=== PATIENT | female | born 1955 | race Caucasian/White ===

== ENCOUNTER 2016-02-19 10:52 | Outpatient (RCR) | payer BC ==
[~2016-02-19 10:52] MED LIST: ATEN25TA PO; ATR20T PO; MELO-195 PO; OMEP20CA12 PO
== END 2016-03-14 10:01 | disposition home or self-care (01) ==
PROVIDERS: ATTEND Orthopaedic Surgery
DX: Z47.1 Aftercare following joint replacement surgery (principal); Z96.651 Presence of right artificial knee joint

== ENCOUNTER → 2016-06-14 | Outpatient (CLI) | payer BC ==
--- NOTE | 2016-06-15 18:08 | Diagnostic Imaging Report ---
Bilateral screening mammogram. The current study was also evaluated with a Computer Aided Detection (CAD) system. INDICATION: Screening. No current complaints stated on the questionnaire. COMPARISON: 06/01/15. FINDINGS: The breasts are composed of heterogeneously dense parenchyma which may decrease mammographic sensitivity. There are benign-appearing calcifications seen. Allowing for technique and positional differences, no suspicious change is seen. IMPRESSION: No significant change. ACR BI-RADS Category 2: Benign findings. Result letter will be mailed to the patient. Note: At least 10% of breast cancer is not imaged by mammography. Dictated by: Dictated on workstation # [id number]
== END ==
LOC: RAD 13:02
PROVIDERS: ATTEND Obstetrics & Gynecology
DX: Z12.31 Encounter for screening mammogram for malignant neoplasm of breast (principal)
CPT/HCPCS: 77067

== ENCOUNTER 2017-02-17 08:03 | Outpatient (RCR) | payer BC | END 2017-02-17 08:48 | disposition home or self-care (01) | PROVIDERS: ATTEND Nurse Practitioner Family | DX: M54.16 Radiculopathy, lumbar region (principal) ==

== ENCOUNTER → 2017-07-05 | Outpatient (CLI) | payer BC ==
--- NOTE | 2017-07-05 13:07 | Diagnostic Imaging Report ---
INDICATION: Digital mammogram bilateral screening with 3-D tomosynthesis. This study was compared to the prior exam of 06/14/16, 06/01/15 and 05/28/14. At this time, there are no current complaints. The current study was also evaluated with a Computer Aided Detection (CAD) system. FINDINGS: The fibroglandular tissue in both breasts is heterogeneously dense. This does limit the sensitivity of this exam. When compared to the prior study, there does not appear to have been any significant change. There is no primary or secondary sign of malignancy noted. The 3D tomographic views also fail to show any sign of malignancy. IMPRESSION: There is no evidence of malignancy. ACR BI-RADS Category 1: Negative. Result letter will be mailed to the patient. Note: At least 10% of breast cancer is not imaged by mammography. Dictated by: Dictated on workstation # [id number]
== END ==
LOC: RAD 07:29
PROVIDERS: ATTEND Obstetrics & Gynecology
DX: Z12.31 Encounter for screening mammogram for malignant neoplasm of breast (principal)
CPT/HCPCS: 77067

== ENCOUNTER → 2018-06-27 | Outpatient (CLI) | payer MEDICARE ==
--- NOTE | 2018-06-27 11:56 | Diagnostic Imaging Report ---
INDICATION: Screening. TECHNIQUE: The current study was also evaluated with a Computer Aided Detection (CAD) system. 3D tomographic imaging was also performed. COMPARISON: 07/05/2017, 06/14/2016, and 06/01/2015. FINDINGS: There are scattered fibroglandular densities bilaterally. There are a few benign type calcifications. There is no dominant mass, spiculated lesion, or suspicious calcification identified. The skin, nipples, and axillae are unremarkable. IMPRESSION: Benign findings. ACR BI-RADS Category 2: Benign findings. Result letter will be mailed to the patient. Note: At least 10% of breast cancer is not imaged by mammography. Dictated by: Dictated on workstation # [id number]
== END ==
LOC: RAD 07:22
PROVIDERS: ATTEND Obstetrics & Gynecology
DX: Z12.31 Encounter for screening mammogram for malignant neoplasm of breast (principal)
CPT/HCPCS: 77067

== ENCOUNTER → 2018-12-21 | Outpatient (CLI) | payer MEDICARE ==
--- NOTE | 2018-12-21 16:08 | Diagnostic Imaging Report ---
PROCEDURE: US carotid duplex, bilateral. TECHNIQUE: Multiple real-time grayscale images were obtained over the carotid arteries in various projections, bilaterally. Additional spectral analysis and color Doppler duplex images were also obtained. INDICATION: Chest pain, shortness of breath. COMPARISON: There are no prior studies available for comparison. FINDINGS: There is mild hard and soft plaque formation in both carotid bifurcations. The flow velocities failed to show any sign of a hemodynamically significant stenosis of the common or internal carotid arteries. Both vertebral arteries were noted and there was antegrade flow bilaterally. During the course the exam a small subcentimeter hypoechoic area was seen in the right lobe of the thyroid. I suspect that this is a cyst and most likely benign. Even so, I would recommend that a dedicated thyroid ultrasound exam be performed to better characterize this finding. IMPRESSION: 1. There is mild atherosclerotic disease involving both carotid systems. There is no evidence for a hemodynamically significant stenosis of either carotid system. 2. The small hypoechoic lesion in the right lower thyroid is most likely a benign process. Recommendations as above. Parameters based on the consensus panel Pruitt-Scale and Doppler ultrasound criteria published December 2002, Radiology, Volume 229. DOPPLER (peak systolic velocity M/S Right Left CCA .79 .86 ICA Proximal .73 .73 ICA Mid .76 1.09 ICA Distal .89 1.45 RATIO 1.1 1.7 ECA .97 .73 VERT .39 .74 Dictated by: Dictated on workstation # [id number]
== END ==
LOC: RAD 14:54
PROVIDERS: ATTEND Internal Medicine Cardiovascular Disease
DX: I65.23 Occlusion and stenosis of bilateral carotid arteries (principal); E07.89 Other specified disorders of thyroid; R42 Dizziness and giddiness; R55 Syncope and collapse; R06.02 Shortness of breath
CPT/HCPCS: 93880

== ENCOUNTER → 2018-12-25 | Outpatient (CLI) | payer MEDICARE ==
[~2018-12-25] VITALS: Ht 162 cm; Wt 82.0 kg
[~2018-12-25] MED LIST changes: +CATHETER FLUSH 10 ML SYR IV PRN; +REGADENOSON 0.4 MG/5 ML SYR (LEXISCAN) IV ONE
--- NOTE | 2018-12-25 17:14 | STRESS TEST ---
DATE OF SERVICE: 12/25/2018 RESTING AND POST REGADENOSON TECHNETIUM-99M TETROFOSMIN SPECT CT IMAGING ORDERING PHYSICIAN: Dr. Dukes. PRIMARY PHYSICIAN: Dr. Sesay. CLINICAL DIAGNOSIS: Chest discomfort, shortness of breath, near syncope. Baseline images were carried out after injection of 10.27 mCi of technetium-99m Tetrofosmin. This was followed by 0.4 mg regadenoson and 29.5 mCi of technetium-99m Tetrofosmin for stress imaging. The electrocardiogram shows sinus rhythm at baseline. The electrocardiogram did not change significantly with the regadenoson infusion. A few isolated premature ventricular contractions were seen. The patient tolerated the procedure well. Review of images at rest and following stress does not indicate any distinct perfusion defects consistent with significant myocardial ischemia or infarction. Gated images show normal global left ventricular systolic function with normal regional wall motion. Left ventricular ejection fraction is calculated to be 67%. Left ventricular end diastolic volume is 72 mL. TID is absent (1.06). CONCLUSIONS: 1. No evidence of any significant myocardial ischemia or infarction on this study. 2. Normal regional wall motion. 3. Normal global left ventricular systolic function with a calculated ejection fraction of 67%. Job ID: [id number] DocumentID: [id number] Dictated Date: 12/25/2018 13:59:05 Expediter Date: 12/25/2018 17:13:31 Dictated By: DEBBIE DUKES MD, MA, FACP, FACC,
== END ==
LOC: CARD 06:49
PROVIDERS: ATTEND Internal Medicine Cardiovascular Disease
DX: I47.1 Supraventricular tachycardia (principal); E78.5 Hyperlipidemia, unspecified
CPT/HCPCS: 78452; 93017

== ENCOUNTER → 2018-12-27 | Outpatient (CLI) | payer MEDICARE ==
[~2018-12-27] MED LIST changes: -CATHETER FLUSH 10 ML SYR IV PRN; -REGADENOSON 0.4 MG/5 ML SYR (LEXISCAN) IV ONE
== END ==
LOC: CARD 08:17
PROVIDERS: ATTEND Internal Medicine Cardiovascular Disease
DX: I34.0 Nonrheumatic mitral (valve) insufficiency (principal); I51.7 Cardiomegaly; E78.5 Hyperlipidemia, unspecified; I47.1 Supraventricular tachycardia; R55 Syncope and collapse; R42 Dizziness and giddiness
CPT/HCPCS: 93306

== ENCOUNTER → 2019-01-02 | Outpatient (CLI) | payer MEDICARE ==
--- NOTE | 2019-01-02 10:47 | Diagnostic Imaging Report ---
PROCEDURE: US Thyroid. TECHNIQUE: Multiple real-time grayscale images were obtained of the thyroid in various projections. INDICATION: Thyroid nodule. COMPARISON: None available FINDINGS: The right lobe of thyroid gland measures 4.0 x 1.3 x 1.9 cm. A spongiform round 0.9 x 0.7 x 0.7 cm hypoechoic nodule is noted within the mid right thyroid lobe. An additional 0.7 cm colloid cyst is noted within the right thyroid lobe. The left lobe of thyroid gland measures 3.9 x 1.0 x 1.2 cm. It maintains a homogeneous echotexture. 0.5 x 0.4 cm round cystic nodule is noted within the left thyroid lobe posteriorly without internal vascularity. Isthmus is unremarkable. IMPRESSION: Bilateral subcentimeter thyroid nodules, including a TIRADS 2 nodule within the right thyroid lobe. Dictated by: Dictated on workstation # [id number]
== END ==
LOC: RAD 07:46
PROVIDERS: ATTEND Internal Medicine
DX: E04.2 Nontoxic multinodular goiter (principal)
CPT/HCPCS: 76536

== ENCOUNTER → 2019-01-22 | Outpatient (CLI) | payer MEDICARE ==
--- NOTE | 2019-01-22 10:14 | Diagnostic Imaging Report ---
INDICATION: Screening for osteoporosis. COMPARISON: 07/17/2009 FINDINGS: The bone mineral density of the hips and spine was measured. This exam was compared to the report from the prior exam of 07/17/2009. The T score for the spine is -1.2. On the prior exam, the T score was reported as 1.0. The T score now falls within the range of osteopenia. The total T score for the left hip is -0.7 and for the right hip -0.9. On the prior exam, the respective T scores were -0.4 and 0.0. These values remain within normal limits. The T score for the left femoral neck is -1.4 and for the right femoral neck -1.3. These T scores indicate osteopenia. The T-scores for the femoral necks were not obtained on the prior exam. AP Spine L1-L4: [BMD (g/cm2): 1.061] [T-Score: -1.2] [Z-Score: -.1] [BMD Previous: 1.383] [BMD % Change: -23.3] LT Hip Neck: [BMD (g/cm2): 0.845] [T-Score: -1.4] [Z-Score: -0.2] LT Hip Total: [BMD (g/cm2):0.916] [T-Score:-0.7] [Z-Score: 0.1] [BMD Previous: 0.958] [BMD % Change: -4.4] RT Hip Neck: [BMD (g/cm2):0.857] [T-Score:-1.3] [Z-Score:-0.2] RT Hip Total: [BMD (g/cm2):0.889] [T-score:-0.9] [Z-Score:-0.1] [BMD Previous:1.014] [BMD % Change:-12.3] *Indicates significant change from prior examination based on 95% confidence level. World Health Organization criteria for BMD interpretation classify patients as Normal (T-score at or above -1.0), Osteopenic (T-score between -1.0 and -2.5) or Osteoporotic (T-score at or below -2.5). LIMITATIONS AND MODIFICATION: None. FRACTURE RISK (FRAX SCORE): The ten year probability of (%): Major Osteoporotic Fracture: [8.5] Hip Fracture: [0.9] IMPRESSION: 1. 1. The bone mineral density of the hips and spine has decreased since the prior exam. The T score for the spine now indicates mild osteopenia. The T score values for the hips remain within normal limits. 2. The T-scores for the femoral necks were not obtained on the prior study. The bone mineral density of the femoral necks on this exam does fall within the range of osteopenia. 3. See below National Osteoporosis Foundation guidelines on when to potentially initiate pharmacologic therapy. Based on the National Osteoporosis Foundation Guidelines, pharmacologic treatment should be initiated in any of the following, unless clinical conditions suggest otherwise: * Any patient with prior fragility fracture of the hip or vertebrae. A spine fracture indicates 5X risk for subsequent spine fracture and 2X risk for subsequent hip fracture. * Osteoporosis (T-score <-2.5). * Postmenopausal women and men age 50 and older with low bone mass/osteopenia (T-score between -1.0 and -2.5) by DXA and 10-year major osteoporotic fracture greater than 20% or a 10-year probability of hip fracture greater than 3%. These fracture risks are supplied above in the FRAX score, if applicable. * Clinician judgement and/or patient preferences may indicate treatment for people with 10-year fracture probabilities above or below these levels. Dictated by: Dictated on workstation # [id number]
== END ==
LOC: RAD 08:44
PROVIDERS: ATTEND Internal Medicine
DX: Z13.820 Encounter for screening for osteoporosis (principal); Z78.0 Asymptomatic menopausal state
CPT/HCPCS: 77080

== ENCOUNTER → 2019-07-16 | Outpatient (CLI) | payer MEDICARE ==
--- NOTE | 2019-07-16 12:40 | Diagnostic Imaging Report ---
INDICATION: Routine screening. COMPARISON: 06/27/2018 and 07/05/2017. TECHNIQUE: 2D and 3D bilateral screening mammography was performed with CAD. FINDINGS: Scattered fibroglandular densities are identified bilaterally. Scattered benign-appearing calcifications are noted. No mass or malignant appearing microcalcifications are identified. The axillae are unremarkable. IMPRESSION: No mammographic features suspicious for malignancy are identified. ACR BI-RADS Category 2: Benign findings. Result letter will be mailed to the patient. Note: At least 10% of breast cancer is not imaged by mammography. Dictated by: Dictated on workstation # [id number]
== END ==
LOC: RAD 08:13
PROVIDERS: ATTEND Obstetrics & Gynecology
DX: Z12.31 Encounter for screening mammogram for malignant neoplasm of breast (principal)
CPT/HCPCS: 77063; 77067

== ENCOUNTER → 2019-07-23 | Outpatient (CLI) | payer MEDICARE ==
--- NOTE | 2019-07-23 10:21 | Diagnostic Imaging Report ---
INDICATION: Thyroid nodules, follow-up TECHNIQUE: Grayscale sonographic images of the thyroid gland. CORRELATION STUDY: 01/02/2019 FINDINGS: RIGHT LOBE: 4 x 1.6 x 1.4 cm. There are multiple peripherally hypoechoic, largely cystic nodules within the right lobe. One is slightly complex mixed solid cystic at the mid aspect measuring 9 x 7 x 7 mm. Multiple additional ones are also present more cystic in nature measuring up to 7 mm in size. LEFT LOBE: 3.5 x 1.2 x 0.7 cm. Very small, cystic nodule is noted, largest up to 5 mm in size. Isthmus appears unremarkable. IMPRESSION: Multiple bilateral thyroid nodules right greater than left. Overall number of nodules perhaps increased from prior study. However, no definitive dominant concerning nodule is suggested at this time. Continued follow-up ultrasound imaging in approximately 6-12 months is recommended for continued surveillance assessment. (Normal gland size: 4-5 x 2 x 2 cm) Dictated by: Dictated on workstation # [id number]
== END ==
LOC: RAD 08:36
PROVIDERS: ATTEND Internal Medicine
DX: E04.2 Nontoxic multinodular goiter (principal)
CPT/HCPCS: 76536

== ENCOUNTER → 2020-07-17 | Outpatient (CLI) | payer MEDICARE ==
--- NOTE | 2020-07-17 14:32 | Diagnostic Imaging Report ---
INDICATION: Routine screening. Comparison is made prior mammogram 07/16/2019 and 06/27/2018. 2-D and 3-D bilateral screening mammography was performed with CAD. Scattered fibroglandular densities are identified bilaterally. The parenchymal pattern is stable. No mass or malignant appearing microcalcifications are seen. There are benign calcifications. Axillae are unremarkable. IMPRESSION: BI-RADS Category 2 No mammographic features suspicious for malignancy are identified. ACR BI-RADS Category 2: Benign findings. Result letter will be mailed to the patient. Note: At least 10% of breast cancer is not imaged by mammography. Dictated by: Dictated on workstation # [id number]
== END ==
LOC: RAD 08:34
PROVIDERS: ATTEND Internal Medicine
DX: Z12.31 Encounter for screening mammogram for malignant neoplasm of breast (principal)
CPT/HCPCS: 77063; 77067

== ENCOUNTER → 2020-12-25 | Outpatient (CLI) | payer MEDICARE ==
--- NOTE | 2020-12-25 11:12 | Diagnostic Imaging Report ---
PROCEDURE: US Thyroid. TECHNIQUE: Multiple real-time grayscale images were obtained of the thyroid in various projections. INDICATION: Thyroid nodules. FINDINGS: The previous thyroid ultrasound exam performed on 07/23/2019 noted multiple rounded hypoechoic areas within each lobe of the thyroid. These hypoechoic nodules had increased in number since the prior exam of 01/02/2019. However, all of the hypoechoic lesions had a generally benign appearance. In the inferior pole of the right lobe of the thyroid, there is a 1.0 x 0.9 x 0.9 cm fairly well-circumscribed predominantly cystic lesion with a few internal echoes. This finding appears to have been present on the prior exam at which time it measured 0.9 x 0.7 x 0.7 cm. The cystic component of this nodule has increased since the prior study but this finding still has a generally benign appearance. Even so, it may prove worthwhile to have a short-term (six-month) follow-up thyroid ultrasound exam for further study. The other suspected thyroid cysts/nodules seen previously do not appear to have changed significantly. No new abnormality has developed either. The thyroid gland is not enlarged with the right lobe measuring 3.8 x 1.2 x 1.5 cm and the left lobe estimated to be 3.3 x 1.0 x 1.1 cm (normal gland size 4-5 x 2 x 2 cm or less). IMPRESSION: 1. The hypoechoic nodule containing internal echoes in the inferior pole of the right lobe of the thyroid seen previously does measure somewhat greater on this exam. This finding still has a generally benign appearance but a short-term (six-month) follow-up thyroid ultrasound exam would be recommended for further study. 2. The overall appearance of the thyroid gland has not changed significantly, otherwise. Dictated by: Dictated on workstation # [id number]
== END ==
LOC: RAD 08:00
PROVIDERS: ATTEND Internal Medicine
DX: E04.2 Nontoxic multinodular goiter (principal)
CPT/HCPCS: 76536

== ENCOUNTER → 2021-04-07 | Outpatient (CLI) | payer MEDICARE | LOC: LABNPT 07:00 | PROVIDERS: ATTEND Orthopaedic Surgery | DX: Z01.812 Encounter for preprocedural laboratory examination (principal); Z20.822 Contact with and (suspected) exposure to COVID-19 | CPT/HCPCS: 87635 ==

== ENCOUNTER 2021-05-26 08:05 | Outpatient (RCR) | payer MEDICARE | END 2021-05-27 | disposition home or self-care (01) | PROVIDERS: ATTEND Nurse Practitioner Family | DX: M25.511 Pain in right shoulder (principal); I10 Essential (primary) hypertension; Z98.890 Other specified postprocedural states; Z96.611 Presence of right artificial shoulder joint ==

== ENCOUNTER 2021-06-25 08:00 | Outpatient (RCR) | payer MEDICARE | END 2021-06-26 | disposition home or self-care (01) | PROVIDERS: ATTEND Nurse Practitioner Family | DX: M25.511 Pain in right shoulder (principal); I10 Essential (primary) hypertension; Z98.890 Other specified postprocedural states; Z96.611 Presence of right artificial shoulder joint ==

== ENCOUNTER → 2021-07-13 | Outpatient (CLI) | payer MEDICARE ==
--- NOTE | 2021-07-13 10:24 | Diagnostic Imaging Report ---
INDICATION: Postmenopausal screening COMPARISON: 01/22/2019 FINDINGS: AP Spine L1-L4: [BMD (g/cm2): 0.977] [T-Score: -1.9] [Z-Score: -038] [BMD Previous: 1.061] [BMD % Change: -7.9] LT Hip Neck: [BMD (g/cm2): 0.862] [T-Score: -1.3] [Z-Score: -0.1] LT Hip Total: [BMD (g/cm2):0.924] [T-Score:-0.7] [Z-Score: 0.3] [BMD Previous: 0.916] [BMD % Change: 0.9] RT Hip Neck: [BMD (g/cm2):0.816] [T-Score:-1.6] [Z-Score:-0.4] RT Hip Total: [BMD (g/cm2):0.909] [T-score:-0.8] [Z-Score:0.2] [BMD Previous:0.889] [BMD % Change:2.2] *Indicates significant change from prior examination based on 95% confidence level. World Health Organization criteria for BMD interpretation classify patients as Normal (T-score at or above -1.0), Osteopenic (T-score between -1.0 and -2.5) or Osteoporotic (T-score at or below -2.5). LIMITATIONS AND MODIFICATION: None. FRACTURE RISK (FRAX SCORE): The ten year probability of (%): Major Osteoporotic Fracture: [15.3] Hip Fracture: [2.0] IMPRESSION: 1. Osteopenia (Low bone mass). 2. Bone mineral density has decreased by a statistically significant amount, as detailed above. 3. See below National Osteoporosis Foundation guidelines on when to potentially initiate pharmacologic therapy. Based on the National Osteoporosis Foundation Guidelines, pharmacologic treatment should be initiated in any of the following, unless clinical conditions suggest otherwise: * Any patient with prior fragility fracture of the hip or vertebrae. A spine fracture indicates 5X risk for subsequent spine fracture and 2X risk for subsequent hip fracture. * Osteoporosis (T-score <-2.5). * Postmenopausal women and men age 50 and older with low bone mass/osteopenia (T-score between -1.0 and -2.5) by DXA and 10-year major osteoporotic fracture greater than 20% or a 10-year probability of hip fracture greater than 3%. These fracture risks are supplied above in the FRAX score, if applicable. * Clinician judgement and/or patient preferences may indicate treatment for people with 10-year fracture probabilities above or below these levels. Dictated by: Dictated on workstation # [id number]
--- NOTE | 2021-07-13 10:29 | Diagnostic Imaging Report ---
PROCEDURE: US Thyroid. TECHNIQUE: Multiple real-time grayscale images were obtained of the thyroid in various projections. INDICATION: Follow-up of thyroid nodule. Comparison with the previous examination of 12/25/2020. FINDINGS: Right lobe measures 3.9 x 1.3 x 2.2 cm. Left lobe measures 3.9 x 0.5 x 1.3 cm. The anechoic cyst noted in the right lobe with peripheral calcifications are again demonstrated. These have not changed in appearance. No solid lesions are identified. IMPRESSION: Anechoic cyst with peripheral calcification right lobe are stable. 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 Two-year follow-up recommended. TI-RADS 3 Dictated by: Dictated on workstation # [id number]
== END ==
LOC: RAD 08:30
PROVIDERS: ATTEND Internal Medicine
DX: M85.80 Other specified disorders of bone density and structure, unspecified site (principal); E04.1 Nontoxic single thyroid nodule; Z78.0 Asymptomatic menopausal state
CPT/HCPCS: 76536; 77080

== ENCOUNTER → 2021-07-20 | Outpatient (CLI) | payer MEDICARE ==
--- NOTE | 2021-07-20 10:52 | Diagnostic Imaging Report ---
INDICATION: Routine screening. COMPARISON: 07/17/2020 and 07/16/2019. TECHNIQUE: 2D and 3D bilateral screening mammography was performed with CAD. FINDINGS: Scattered fibroglandular densities are identified bilaterally. The parenchymal pattern is stable. No mass or malignant-appearing microcalcifications are seen. Occasional benign calcifications are noted. The axillae are unremarkable. IMPRESSION: No mammographic features suspicious for malignancy are identified. ACR BI-RADS Category 2: Benign findings. Result letter will be mailed to the patient. Note: At least 10% of breast cancer is not imaged by mammography. Dictated by: Dictated on workstation # [id number]
== END ==
LOC: RAD 08:45
PROVIDERS: ATTEND Internal Medicine
DX: Z12.31 Encounter for screening mammogram for malignant neoplasm of breast (principal)
CPT/HCPCS: 77063; 77067

== ENCOUNTER 2021-07-23 09:19 | Outpatient (RCR) | payer MEDICARE | END 2021-07-27 | disposition home or self-care (01) | PROVIDERS: ATTEND Nurse Practitioner Family | DX: M25.511 Pain in right shoulder (principal); I10 Essential (primary) hypertension; Z98.890 Other specified postprocedural states; Z96.611 Presence of right artificial shoulder joint ==

== ENCOUNTER 2021-08-12 08:26 | Outpatient (RCR) | payer MEDICARE | END 2021-08-12 12:10 | disposition home or self-care (01) | PROVIDERS: ATTEND Nurse Practitioner Family | DX: M25.511 Pain in right shoulder (principal); I10 Essential (primary) hypertension; Z98.890 Other specified postprocedural states; Z96.611 Presence of right artificial shoulder joint ==

== ENCOUNTER → 2021-08-19 | Outpatient (CLI) | payer MEDICARE ==
[~2021-08-19] MED LIST changes: +ZOLEDRONATE (RECLAST) 5 MG/100 ML IV ONE
[2021-08-19 09:45] VITALS: BP 140/72
== END ==
LOC: SDC 09:26
PROVIDERS: ATTEND Internal Medicine
DX: M81.0 Age-related osteoporosis without current pathological fracture (principal); M85.80 Other specified disorders of bone density and structure, unspecified site
CPT/HCPCS: 96365

== ENCOUNTER 2022-03-10 01:28 | Emergency (ER) | payer MEDICARE ==
[~2022-03-10 01:28] MED LIST changes: -ONDA8TAB13 PO; -OXYC1TAB11 PO
--- NOTE | 2022-03-10 01:51 | ED Abdominal Pain ---
General Chief Complaint: Abdominal/GI Problems Stated Complaint: RT SIDE PAIN,DRY HEAVES Source of Information: Patient History of Present Illness Date Seen by Provider: Mar 10, 2022 Time Seen by Provider: 01:48 Initial Comments PT ARRIVES VIA POV FROM HOME C/O RIGHT SIDED ABDOMINAL PAIN THAT STARTED TONIGHT AROUND 1900 C/O NAUSEA AND VOMITING, NOW DRY HEAVES--TOO MANY TO COUNT; NO HEMATEMESIS OR COFFEE GROUND EMESIS C/O DIARRHEA BEGAN A COUPLE OF DAYS AGO--3-4 STOOLS / DAY. NO BLACK/BLOODY/TARRY STOOLS NO FEVER NO URINARY SYMPTOMS NO BACK PAIN ATE DINNER AROUND [id number] AT [employer], [place], [employer]. NO ONE ELSE IS ILL. STATES SHE FELT FINE ALL DAY PT HAS HAD PRIOR APPENDECTOMY AND CHOLECYSTECTOMY SHE HAS HISTORY OF CROHN'S DISEASE, NOT ACTIVE WITH LAST COLONOSCOPY A COUPLE OF YEARS AGO. SHE DOES NOT TAKE ANY MEDICATIONS FOR CROHN'S. SHE STATES HER CROHN'S HAS BEEN IN REMISSION FOR MANY YEARS. PCP:DR. MATA GI: DR. GUILLAUME IN [place] Allergies and Home Medications Allergies Coded Allergies: No Known Drug Allergies (Unverified , 03/29/11) Patient Home Medication List Home Medication List Reviewed: Yes Atenolol (Tenormin 25 Mg) 25 Mg Tablet, 1 EACH PO DAILY, (Reported) Entered as Reported by: DEEPIKA PIERCE on 03/29/11 1334 Atorvastatin (Lipitor 20MG) 20 Mg Tablet, 1 EACH PO DAILY, (Reported) Entered as Reported by: DEEPIKA PIERCE on 03/29/11 1334 Meloxicam (Meloxicam) 15 Mg Tablet, 1 EACH PO DAILY, (Reported) Entered as Reported by: DEEPIKA PIERCE on 03/29/11 1334 Omeprazole (Omeprazole) 20 Mg Capsule., 1 CAP PO DAILY, (Reported) Entered as Reported by: DEEPIKA PIERCE on 03/29/11 1334 Ondansetron (Ondansetron Odt) 8 Mg Tab.rapdis, 8 MG PO Q4H PRN for NAUSEA/VOMITING Prescribed by: LUISA ARANGO on 03/10/22 0407 Oxycodone HCl/Acetaminophen (Oxycodone-Acetaminophen 5-325) 5 Mg-325 Mg Tablet, 1 EACH PO Q4H PRN for PAIN-MODERATE Prescribed by: LUISA ARANGO on 03/10/22 0408 Review of Systems Review of Systems Constitutional: no symptoms reported; No chills, No diaphoresis, No fever Respiratory: No Symptoms Reported Cardiovascular: No Symptoms Reported Gastrointestinal: See HPI, Abdominal Pain, Diarrhea, Nausea; Denies Poor Appetite, Denies Rectal Bleeding; Vomiting Genitourinary: No Symptoms Reported Musculoskeletal: no symptoms reported Skin: no symptoms reported; No rash Psychiatric/Neurological: No Symptoms Reported Endocrine: No Symptoms Reported Hematologic/Lymphatic: No Symptoms Reported Past Dfkaidj-Hsywfd-Ijidiy Hx Patient Social History Tobacco Use?: No Use of E-Cig and/or Vaping dev: No Substance use?: No Alcohol Use?: Yes Alcohol Frequency: Once in a while Past Medical History Surgeries: Yes Abdominal, Appendectomy, Gallbladder Respiratory: No Cardiac: Yes 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, Hypertension 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 Genitourinary: No Gastrointestinal: Yes Gastroesophageal Reflux, Crohns Disease Musculoskeletal: Yes Arthritis Endocrine: Yes (THYROID NODULES) HEENT: No Cancer: No Psychosocial: No Integumentary: No Blood Disorders: No Family Medical History SOCIAL HISTORY: -NO SMOKING -OCCASIONAL ETOH -DENIES DRUG USE PAST SURGICAL HISTORY: -OPEN APPENDECTOMY -OPEN CHOLECYSTECTOMY -COLONOSCOPIES -EGD Physical Exam Vital Signs Vital Signs - First Documented 03/10/22 01:45 Temp 36.0 Pulse 74 Resp 16 B/P (MAP) 187/76 (113) Pulse Ox 96 O2 Delivery Room Air Capillary Refill : Height/Weight/BMI Height: '" Weight: lbs. oz. kg; 31.24 BMI Method: General Appearance: WD/WN, other (PT IS DRY HEAVING ON ARRIVAL, AND LOOKS UNCOMFORTABLE, HOLDING RIGHT SIDE) Respiratory: normal breath sounds, no respiratory distress, no accessory muscle use Cardiovascular: regular rate, rhythm, no murmur Gastrointestinal: normal bowel sounds, soft; No distended, No guarding, No r ebound; tenderness (DIFFUSE RIGHT SIDED ABDOMINAL TENDERNESS, WITH MILD RIGHT FLANK TENDERNESS. 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, no motor/sensory deficits, alert, oriented x 3 Skin: normal color, warm/dry; No rash Progress/Results/Core Measures Results/Orders Lab Results Laboratory Tests Test 03/10/22 01:50 03/10/22 02:55 Range/Units White Blood Count 7.5 4.3-11.0 10^3/uL Red Blood Count 4.29 3.80-5.11 10^6/uL Hemoglobin 11.0 L 11.5-16.0 g/dL Hematocrit 35 35-52 % Mean Corpuscular Volume 82 80-99 fL Mean Corpuscular Hemoglobin 26 25-34 pg Mean Corpuscular Hemoglobin Concent 31 L 32-36 g/dL Red Cell Distribution Width 15.8 H 10.0-14.5 % Platelet Count 288 130-400 10^3/uL Mean Platelet Volume 9.2 9.0-12.2 fL Immature Granulocyte % (Auto) 0 % Neutrophils (%) (Auto) 74 42-75 % Lymphocytes (%) (Auto) 19 12-44 % Monocytes (%) (Auto) 5 0-12 % Eosinophils (%) (Auto) 1 0-10 % Basophils (%) (Auto) 0 0-10 % Neutrophils # (Auto) 5.6 1.8-7.8 10^3/uL Lymphocytes # (Auto) 1.5 1.0-4.0 10^3/uL Monocytes # (Auto) 0.4 0.0-1.0 10^3/uL Eosinophils # (Auto) 0.0 0.0-0.3 10^3/uL Basophils # (Auto) 0.0 0.0-0.1 10^3/uL Immature Granulocyte # (Auto) 0.0 0.0-0.1 10^3/uL Erythrocyte Sedimentation Rate 14 0-30 MM/HR Sodium Level 142 135-145 MMOL/L Potassium Level 4.2 3.6-5.0 MMOL/L Chloride Level 111 H 98-107 MMOL/L Carbon Dioxide Level 20 L 21-32 MMOL/L Anion Gap 11 5-14 MMOL/L Blood Urea Nitrogen 27 H 7-18 MG/DL Creatinine 1.02 0.60-1.30 MG/DL Estimat Glomerular Filtration Rate 60 BUN/Creatinine Ratio 26 Glucose Level 163 H 70-105 MG/DL Calcium Level 9.1 8.5-10.1 MG/DL Corrected Calcium 9.1 8.5-10.1 MG/DL Total Bilirubin 0.3 0.1-1.0 MG/DL Aspartate Amino Transf (AST/SGOT) 20 5-34 U/L Alanine Aminotransferase (ALT/SGPT) 16 0-55 U/L Alkaline Phosphatase 71 40-136 U/L C-Reactive Protein High Sensitivity 0.05 0.00-0.50 MG/DL Total Protein 7.0 6.4-8.2 GM/DL Albumin 4.0 3.2-4.5 GM/DL Amylase Level 58 25-125 U/L Lipase 42 8-78 U/L Urine Color YELLOW Urine Clarity CLEAR Urine pH 6.5 5-9 Urine Specific [place] >=1.030 1.016-1.022 Urine Protein TRACE H NEGATIVE Urine Glucose (UA) TRACE H NEGATIVE Urine Ketones NEGATIVE NEGATIVE Urine Nitrite NEGATIVE NEGATIVE Urine Bilirubin NEGATIVE NEGATIVE Urine Urobilinogen 0.2 < = 1.0 MG/DL Urine Leukocyte Esterase TRACE H NEGATIVE Urine RBC (Auto) 1+ H NEGATIVE Urine RBC 2-5 H /HPF Urine WBC RARE /HPF Urine Squamous Epithelial Cells RARE /HPF Urine Crystals NONE /LPF Urine Bacteria FEW H /HPF Urine Casts NONE /LPF Urine Mucus SMALL H /LPF Urine Culture Indicated YES My Orders Orders - LUISA ARANGO DO Ed Iv/Invasive Line Start (03/10/22 01:46) Monitor-Rhythm Ecg Trace Only (03/10/22 01:46) Amylase (03/10/22 01:46) Cbc With Automated Diff (03/10/22 01:46) Comprehensive Metabolic Panel (03/10/22 01:46) Hs C Reactive Protein (03/10/22 01:46) Lipase (03/10/22 01:46) Ua Culture If Indicated (03/10/22 01:46) Erythrocyte Sedimentation Rate (03/10/22 01:46) Ed Iv/Invasive Line Start (03/10/22 01:46) Lactated Ringers (Lr 1000 Ml Iv Solution (03/10/22 02:00) Ondansetron Injection (Zofran Injectio (03/10/22 02:00) Ketorolac Injection (Toradol Injection) (03/10/22 02:00) Ct Abd/Pelvis Wo(Kidney Stone) (03/10/22 02:27) Abdomen/Kub 1view (03/10/22 02:27) Ed Iv/Invasive Line Start (03/10/22 02:30) Lactated Ringers (Lr 1000 Ml Iv Solution (03/10/22 02:30) Fentanyl Inj (Sublimaze Injection) (03/10/22 03:00) Urine Culture (03/10/22 02:55) Ceftriaxone 1 Gm Pre-Mix (Rocephin 1 Gm (03/10/22 03:45) Fentanyl Inj (Sublimaze Injection) (03/10/22 04:00) Rx-Oxycodone/Apap 5-325 Mg (Rx-Percocet (03/10/22 04:00) Rx-Ondansetron Po (Rx-Zofran Po) (03/10/22 03:58) Ondansetron Injection (Zofran Injectio (03/10/22 04:15) Medications Given in ED Vital Signs/I&O 03/10/22 03/10/22 01:45 04:37 Temp 36.0 36.0 Pulse 74 88 Resp 16 16 B/P (MAP) 187/76 (113) 127/69 Pulse Ox 96 96 O2 Delivery Room Air Room Air Progress Progress Note : Progress Note GIVEN: -IV FLUIDS -TORADOL AND FENTANYL FOR PAIN -ZOFRAN FOR NAUSEA -ROCEPHIN FOR UTI SYMPTOMS MUCH IMPROVED AT DISMISSAL NO DETERIORATION IN PT'S CONDITION DURING ER STAY REVIEWED TEST RESULTS, ANTICIPATED COURSE, MEDICATIONS, NEED FOR FOLLOW UP AND RETURN PRECAUTIONS Diagnostic Imaging Comments CT ABDOMEN/PELVIS--PER RADIOLOGIST REPORT AT 0314 FINDINGS: There are limitations for evaluation of the abdominal organs, neoplastic processes, abscess, and limited evaluation of the vasculature relating to the lack of intravenous contrast. The visualized portions of the lung bases are clear. The heart is not enlarged. There is no pericardial effusion. The liver is unremarkable in size and contour. The gallbladder surgically absent. There is no biliary ductal dilation. Unremarkable appearance of the pancreatic parenchyma. The spleen is normal in size. The adrenal glands are unremarkable. There is moderate to severe right hydronephrosis. There is prominent right perinephric stranding. There is a stone in the right proximal ureter at the level of the ureteropelvic junction which measures 10 mm in size. There is a low-attenuation left renal lesion on axial image 76 measuring 2.1 cm in size consistent with benign cyst. There is an additional benign left renal cyst on axial image 69. There is no left hydronephrosis. There is no left renal or ureteral stone. There is no additional identified right-sided ureteral stone. The urinary bladder is unremarkable. There is diverticulosis without evidence of acute diverticulitis. There is no evidence of acute appendicitis. There is a large hiatal hernia. There is no free intraperitoneal air. There is no drainable fluid collection. There is no free fluid in the abdomen or pelvis. There are atherosclerotic calcifications. There is no identified abnormally enlarged lymph node in the abdomen or pelvis meeting CT size criteria for adenopathy. There are multilevel degenerative changes of the spine. There is grade 1 anterolisthesis of L4 on L5 relating to facet arthropathy. IMPRESSION: CT ABDOMEN AND PELVIS. 1. 10 mm stone in the right proximal ureter at the ureteropelvic junction with moderate to severe right hydronephrosis and prominent right perinephric stranding. Reviewed: Reviewed by Me Departure Communication (Admissions) 0317--CALLED [facility], THEY ARE AT CAPACITY, AND CANNOT ACCEPT PT FOR TRANSFER, BUT CAN [facility] UROLOGIST. 0335--SPOKE WITH DR. LANCASTER, HE CAN SEE PT IN OFFICE TOMORROW. IMAGES CLOUDED TO [facility], AND HE ADVISES TO HAVE PT GET ANOTHER KUB HERE AN OUTPATIENT BEFORE HER APPOINTMENT, AND HAVE THEM CLOUD IMAGES AND MAKE A DISC FOR PT TO TAKE WITH HER. Impression Primary Impression: Right ureteral calculus Additional Impression: Urinary tract infection Disposition: HOME, SELF-CARE Condition: Improved Departure-Patient Inst. Decision time for Depature: 04:00 Referrals: GEE MATA DO (PCP/Family) Primary Care Physician Patient Instructions: Kidney Stones (DC) Add. Discharge Instructions: HOME, REST LOTS OF CLEAR LIQUIDS YOU NEED TO COME TO THIS HOSPITAL AND GET AN OUTPATIENT XRAY BEFORE YOUR VISIT TO DR. LANCASTER, AND BRING A COPY OF THE XRAY WITH YOU TO YOUR VISIT WITH DR. LANCASTER. FOLLOW UP WITH DR. KP LANCASTER TOMORROW --CALL HIS OFFICE IN THE MORNING FOR APPOINTMENT : [facility] [address] [place] [address] GO TO ER IF YOUR SYMPTOMS WORSEN All discharge instructions reviewed with patient and/or family. Voiced understanding. Scripts Ondansetron (Ondansetron Odt) 8 Mg Tab.rapdis 8 MG PO Q4H PRN for NAUSEA/VOMITING, #10 TAB Prov: LUISA ARANGO DO 03/10/22 Oxycodone HCl/Acetaminophen (Oxycodone-Acetaminophen 5-325) 5 Mg-325 Mg Tablet 1 EACH PO Q4H PRN for PAIN-MODERATE MDD 6 for 3 Days, #15 TAB 0 Refills Prov: LUISA ARANGO DO 03/10/22 LUISA ARANGO DO Mar 10, 2022 01:51
[2022-03-10 01:57] LABS: BASOPHILS % (AUTO) 0 % (0-10); EOSINOPHILS % (AUTO) 1 % (0-10); HEMATOCRIT 35 % (35-52); LYMPHOCYTES # (AUTO) 1.5 10^3/uL (1.0-4.0); LYMPHOCYTES % (AUTO) 19 % (12-44); MEAN CORPUSCULAR HEMOGLOBIN 26 pg (25-34); MEAN CORPUSCULAR HGB CONC 31 g/dL (32-36); MEAN CORPUSCULAR VOLUME 82 fL (80-99); MEAN PLATELET VOLUME 9.2 fL (9.0-12.2); MONOCYTES # (AUTO) 0.4 10^3/uL (0.0-1.0); MONOCYTES % (AUTO) 5 % (0-12); NEUTROPHILS # (AUTO) 5.6 10^3/uL (1.8-7.8); NEUTROPHILS % (AUTO) 74 % (42-75); PLATELET COUNT 288 10^3/uL (130-400); WHITE BLOOD COUNT 7.5 10^3/uL (4.3-11.0)
[2022-03-10] MEDS ORDERED: ONDANSETRON 4 MG/2 ML (SDV) Z0FRAN IVP ONE ×2 (02:00→04:15)
[2022-03-10] MEDS ORDERED: KETOROLAC 30 MG/ML VIAL IVP ONE (02:00)
[2022-03-10] MEDS ORDERED: LACTATED RINGERS 1,000 ML IV ONE ×2 (02:00→02:30)
[2022-03-10 02:08] LABS: POTASSIUM 4.2 MMOL/L (3.6-5.0)
[2022-03-10 02:09] LABS: CALCIUM 9.1 MG/DL (8.5-10.1)
[2022-03-10 02:12] LABS: BILIRUBIN,TOTAL 0.3 MG/DL (0.1-1.0)
[2022-03-10 02:14] LABS: CREATININE SERUM 1.02 MG/DL (0.60-1.30); ERYTHROCYTE SEDIMENTATION RATE 14 MM/HR (0-30)
[2022-03-10] MEDS ORDERED: fentaNYL INJ 100 MCG/2 ML AMP IVP STA (03:00)
--- NOTE | 2022-03-10 03:06 | Diagnostic Imaging Report ---
PROCEDURE: CT urinary tract, rule out kidney stone. TECHNIQUE: Multiple contiguous axial images were obtained through the abdomen and pelvis without the use of intravenous contrast. Auto Exposure Controls were utilized during the CT exam to meet ALARA standards for radiation dose reduction. DATE: March 10, 2022. COMPARISON: None. INDICATION: 67-year-old female, right flank pain. FINDINGS: There are limitations for evaluation of the abdominal organs, neoplastic processes, abscess, and limited evaluation of the vasculature relating to the lack of intravenous contrast. The visualized portions of the lung bases are clear. The heart is not enlarged. There is no pericardial effusion. The liver is unremarkable in size and contour. The gallbladder surgically absent. There is no biliary ductal dilation. Unremarkable appearance of the pancreatic parenchyma. The spleen is normal in size. The adrenal glands are unremarkable. There is moderate to severe right hydronephrosis. There is prominent right perinephric stranding. There is a stone in the right proximal ureter at the level of the ureteropelvic junction which measures 10 mm in size. There is a low-attenuation left renal lesion on axial image 76 measuring 2.1 cm in size consistent with benign cyst. There is an additional benign left renal cyst on axial image 69. There is no left hydronephrosis. There is no left renal or ureteral stone. There is no additional identified right-sided ureteral stone. The urinary bladder is unremarkable. There is diverticulosis without evidence of acute diverticulitis. There is no evidence of acute appendicitis. There is a large hiatal hernia. There is no free intraperitoneal air. There is no drainable fluid collection. There is no free fluid in the abdomen or pelvis. There are atherosclerotic calcifications. There is no identified abnormally enlarged lymph node in the abdomen or pelvis meeting CT size criteria for adenopathy. There are multilevel degenerative changes of the spine. There is grade 1 anterolisthesis of L4 on L5 relating to facet arthropathy. IMPRESSION: CT ABDOMEN AND PELVIS. 1. 10 mm stone in the right proximal ureter at the ureteropelvic junction with moderate to severe right hydronephrosis and prominent right perinephric stranding. Dictated by: Dictated on workstation # [id number]
--- NOTE | 2022-03-10 03:08 | Diagnostic Imaging Report ---
EXAMINATION: Abdominal radiographs, single view. DATE: March 10, 2022. CLINICAL INDICATION: 67-year-old female, right flank pain. COMPARISON: Abdomen pelvis March 10, 2022. COMMENTS: The stone in the right proximal ureter measuring 10 mm in size of the ureteropelvic junction is radiographically visible and is to the right of midline at the level of the L2 vertebral body. There are no gas distended gas-filled segments of bowel. IMPRESSION: 1. The 10 mm stone in the right proximal ureter at the ureteropelvic junction is radiographically visible and is to the right of midline at the level of the L2 vertebral body. Dictated by: Dictated on workstation # [id number]
[2022-03-10 03:10] LABS: BILIRUBIN,URINE NEGATIVE (NEGATIVE); CLARITY,URINE CLEAR; COLOR,URINE YELLOW; GLUCOSE, URINE (UA) TRACE (NEGATIVE); KETONES,URINE NEGATIVE (NEGATIVE); LEUKOCYTE ESTERASE ,URINE TRACE (NEGATIVE); NITRITE,URINE NEGATIVE (NEGATIVE); PH,URINE 6.5 (5-9); PROTEIN,URINE TRACE (NEGATIVE)
[2022-03-10 03:16] LABS: SQUAMOUS EPITHELIAL CELL,UR RARE /HPF; WBC,URINE RARE /HPF
[2022-03-10 03:18] LABS: BACTERIA,URINE FEW /HPF
[2022-03-10] MEDS ORDERED: cefTRIAXone 1 GM PRE-MIX 50 ML IV ONE (03:45)
[2022-03-10] MEDS ORDERED: RX-ONDANSETRON 4 MG ODT (ZOFRAN) PPK #4 PO STA (03:58)
[2022-03-10] MEDS ORDERED: fentaNYL INJ 100 MCG/2 ML AMP IVP ONE (04:00)
[2022-03-10] MEDS ORDERED: RX-OXYCODONE/APAP 5-325 MG #4 TAB PK PO PRN (04:00)
[2022-03-10] MEDS ORDERED: OXYC1TAB11 PO (04:07)
[2022-03-10] MEDS ORDERED: ONDA8TAB13 PO (04:07)
[2022-03-10 04:37] VITALS: BP 127/69
== END 2022-03-10 04:44 | disposition home or self-care (01) ==
LOC: EDUNIT# 01:28 → ER 01:32
DX: N13.2 Hydronephrosis with renal and ureteral calculous obstruction (principal); N39.0 Urinary tract infection, site not specified; Z90.49 Acquired absence of other specified parts of digestive tract; Z87.19 Personal history of other diseases of the digestive system
CPT/HCPCS: 36415; 74018; 74176; 80053; 81000; 82150; 83690; 85025; 85652; 86141; 87088; 93041

== ENCOUNTER → 2022-03-10 | Outpatient (CLI) | payer MEDICARE ==
[~2022-03-10] MED LIST changes: +ONDA8TAB13 PO; +OXYC1TAB11 PO; -ZOLEDRONATE (RECLAST) 5 MG/100 ML IV ONE
--- NOTE | 2022-03-10 12:15 | Diagnostic Imaging Report ---
Indication: Follow-up calculus. COMPARISON: 03/10/2022 FINDINGS: Single frontal radiograph view the abdomen was obtained and again demonstrates 1 cm calculus projecting over the expected location of the right UPJ. Small calculus is also present projecting over the right hemipelvis, which corresponds to phleboliths seen on previous CT. No unexpected radiopaque foreign bodies are seen. Small bowel loops are nondistended. There is no large collection of free intraperitoneal air. Osseous structures show age-related degenerative changes. IMPRESSION: 1. Redemonstration of a 1 cm right-sided collecting system calculus, which appears to be in stable position. Dictated by: Dictated on workstation # [id number]
== END ==
LOC: RAD 10:37
PROVIDERS: ATTEND Emergency Medicine
DX: N20.1 Calculus of ureter (principal)
CPT/HCPCS: 74018

== ENCOUNTER → 2022-04-05 | Outpatient (CLI) | payer MEDICARE ==
[~2022-04-05] MED LIST changes: +ONDA8TAB13 PO; +OXYC1TAB11 PO
--- NOTE | 2022-04-05 17:50 | Diagnostic Imaging Report ---
INDICATION: Right renal calculus. COMPARISON: 03/10/2022 TECHNIQUE: Single radiograph of the abdomen dated 04/05/2022. FINDINGS: Interval placement of a right ureteral stent with the proximal aspect appearing coiled overlying the central aspect of the right kidney with the distal aspect appearing coiled overlying the expected location of the urinary bladder. A 1 cm calcification is identified overlying the inferior pole of the right kidney. This is felt to relate to previously noted stone within the right ureteropelvic junction, which now appears to be intrarenal in location. Surgical clips overlying the right upper abdomen are again seen and stable. Nonobstructive bowel gas pattern. Multiple rounded lucencies are seen overlying the left abdomen in a linear fashion which is felt to be external to the patient and likely within clothing. No free air. No acute osseous abnormality. IMPRESSION: Interval placement of a right ureteral stent as described above. Previously noted stone within the right ureteropelvic junction has changed positioning, and is now identified at an intrarenal location overlying the inferior pole of the right kidney. Dictated by: Dictated on workstation # [id number]
== END ==
LOC: RAD 11:41
PROVIDERS: ATTEND Urology
DX: N20.0 Calculus of kidney (principal)
CPT/HCPCS: 74018

== ENCOUNTER → 2022-08-15 | Outpatient (CLI) | payer MEDICARE ==
--- NOTE | 2022-08-15 11:42 | Diagnostic Imaging Report ---
INDICATION: Routine screening. COMPARISON: 07/20/2021 and 07/17/2020. TECHNIQUE: 2D and 3D bilateral screening mammography was performed with CAD. FINDINGS: Scattered fibroglandular densities are identified bilaterally. The parenchymal pattern is stable. No mass or malignant-appearing microcalcifications are seen. There are benign calcifications bilaterally. The axillae are unremarkable. IMPRESSION: No mammographic features suspicious for malignancy are identified. ACR BI-RADS Category 2: Benign findings. Result letter will be mailed to the patient. Note: At least 10% of breast cancer is not imaged by mammography. Dictated by: Dictated on workstation # [id number]
== END ==
LOC: RAD 08:08
PROVIDERS: ATTEND Internal Medicine
DX: Z12.31 Encounter for screening mammogram for malignant neoplasm of breast (principal)
CPT/HCPCS: 77063; 77067

== ENCOUNTER → 2022-08-19 | Outpatient (CLI) | payer MEDICARE ==
[~2022-08-19] MED LIST changes: +AMIO200T65 PO; +APIX5TAB PO; +ASPI-999 PO; +ZOLEDRONATE (RECLAST) 5 MG/100 ML IV ONE
[2022-08-19 08:56] VITALS: BP 124/72
== END ==
LOC: SDC 08:54
PROVIDERS: ATTEND Internal Medicine
DX: M81.0 Age-related osteoporosis without current pathological fracture (principal)
CPT/HCPCS: 96365

== ENCOUNTER 2022-08-20 01:56 | Observation (INO) | payer MEDICARE ==
[2022-08-20] VITALS (13 sets, daily range): BP systolic 116–144; BP diastolic 79–114
[~2022-08-20] VITALS: Ht 162.6 cm; Wt 94.2 kg
[~2022-08-20 01:56] MED LIST changes: -AMIO200T65 PO; -APIX5TAB PO; -ASPI-999 PO; -ZOLEDRONATE (RECLAST) 5 MG/100 ML IV ONE
[2022-08-20] MEDS: dilTIAZem DRIP PRE-MIX 125 ML IV SCH ×2 (02:17→15:50)
[2022-08-20 02:26] LABS: BASOPHILS # (AUTO) 0.1 10^3/uL (0.0-0.1); BASOPHILS % (AUTO) 1 % (0-10); EOSINOPHILS # (AUTO) 0.1 10^3/uL (0.0-0.3); EOSINOPHILS % (AUTO) 2 % (0-10); HEMATOCRIT 43 % (35-52); HEMOGLOBIN 13.7 g/dL (11.5-16.0); LYMPHOCYTES % (AUTO) 48 % (12-44); MEAN CORPUSCULAR HEMOGLOBIN 29 pg (25-34); MEAN CORPUSCULAR HGB CONC 32 g/dL (32-36); MEAN CORPUSCULAR VOLUME 88 fL (80-99); MEAN PLATELET VOLUME 9.3 fL (9.0-12.2); MONOCYTES # (AUTO) 0.6 10^3/uL (0.0-1.0); MONOCYTES % (AUTO) 9 % (0-12); NEUTROPHILS # (AUTO) 2.5 10^3/uL (1.8-7.8); NEUTROPHILS % (AUTO) 40 % (42-75); PLATELET COUNT 270 10^3/uL (130-400); WHITE BLOOD COUNT 6.2 10^3/uL (4.3-11.0)
[2022-08-20 02:35] LABS: ALBUMIN 4.2 GM/DL (3.2-4.5); POTASSIUM 3.8 MMOL/L (3.6-5.0)
[2022-08-20 02:37] LABS: CALCIUM 9.1 MG/DL (8.5-10.1)
--- NOTE | 2022-08-20 02:37 | ED Cardiac General ---
History of Present Illness General Chief Complaint: Cardiac/General Problems Stated Complaint: HEART FLUTTERING Nursing Triage Note: PALPITATIONS X35MIN Source: patient Exam Limitations: no limitations (JD VELAZCO) History of Present Illness Date Seen by Provider: Aug 20, 2022 Time Seen by Provider: 02:15 Initial Comments Our patient is a 67 yo F who presented to the emergency department for new-onset tachycardia. She states that she was lying in bed, trying to get to sleep when she felt her heart start to race. She notes that it felt like her heart was pounding but this feeling subsided when she kami to a standing position. She wears a watch with biometrics and noted that her heart rate read as 125 at the onset of her symptoms. She denies chest pain, diaphoresis, light-headedness, selam sea, or vomiting. She was at the hospital this morning where she received an annual infusion for osteopenia. She denies any previous occurrences but states that she see's Dr. Dukes for stress testing every few years. Denies previous UT or cardiac interventions. Notes that she becomes anxious when she has to visit the hospital or her doctor. Timing/Duration: 1 hour Activities at Onset: rest Prior CP/Workup: no prior chest pain, stress test (Every few years with Dr. Dukes) ASA po LIFE CLAIMS EXAMINER: No Associated Systoms: No Chest Pain, No Cough, No Diaphoresis, No Fever/Chills, No Nausea/Vomiting, No Shortness of Air, No Syncope, No Weakness (JD VELAZCO) Allergies and Home Medications Allergies Coded Allergies: No Known Drug Allergies (Unverified , 03/29/11) Patient Home Medication List Atenolol (Tenormin 25 Mg) 25 Mg Tablet, 1 EACH PO DAILY, (Reported) Entered as Reported by: DEEPIKA PIERCE on 03/29/11 1334 Atorvastatin (Lipitor 20MG) 20 Mg Tablet, 1 EACH PO DAILY, (Reported) Entered as Reported by: DEEPIKA PIERCE on 03/29/11 133 Meloxicam (Meloxicam) 15 Mg Tablet, 1 EACH PO DAILY, (Reported) Entered as Reported by: DEEPIKA PIERCE on 03/29/11 1334 Omeprazole (Omeprazole) 20 Mg Capsule., 1 CAP PO DAILY, (Reported) Entered as Reported by: DEEPIKA PIERCE on 03/29/11 1334 Ondansetron (Ondansetron Odt) 8 Mg Tab.rapdis, 8 MG PO Q4H PRN for NAUSEA/VOMITING Prescribed by: LUISA ARANGO on 03/10/22 0407 Oxycodone HCl/Acetaminophen (Oxycodone-Acetaminophen 5-325) 5 Mg-325 Mg Tablet, 1 EACH PO Q4H PRN for PAIN-MODERATE Prescribed by: LUISA ARANGO on 03/10/22 0408 Review of Systems Review of Systems Constitutional: no symptoms reported, see HPI; No chills, No diaphoresis, No dizziness, No fever, No weakness EENTM: No Symptoms Reported Respiratory: No Symptoms Reported; Denies Cough, Denies Shortness of Air Cardiovascular: See HPI; Denies Chest Pain, Denies Edema; Irregular Heart Rate; Denies Lightheadedness; Palpitations; Denies Syncope Gastrointestinal: No Symptoms Reported; Denies Nausea, Denies Vomiting Genitourinary: No Symptoms Reported Musculoskeletal: no symptoms reported; No muscle pain Skin: no symptoms reported Psychiatric/Neurological: Anxiety; Denies Weakness Endocrine: No Symptoms Reported; Denies Excessive Sweating, Denies Flushing Hematologic/Lymphatic: No Symptoms Reported (JD VELAZCO) All Other Systems Reviewed Negative Unless Noted: Yes (JD VELAZCO) Past Zehsmtd-Kturun-Qazneg Hx Patient Social History Tobacco Use?: No Substance use?: No Alcohol Use?: Yes Alcohol type: Beer Alcohol Frequency: Once in a while Pt feels they are or have been: No (JD VELAZCO) Past Medical History Surgery/Hospitalization HX: HLD, HTN, GERD, CHRONS, THRYOID NODULES APPENDECTOMY, CHOLECYSTECTOMY Surgeries: Yes Abdominal, Appendectomy, Gallbladder Respiratory: No Cardiac: Yes 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, Hypertension 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 Genitourinary: No Gastrointestinal: Yes Gastroesophageal Reflux, Crohns Disease Musculoskeletal: Yes Arthritis Endocrine: Yes (THYROID NODULES) HEENT: No Cancer: No Psychosocial: No Integumentary: No Blood Disorders: No (JD VELAZCO) Family Medical History Heart Disease (Father of [place] at age 57) SOCIAL HISTORY: -NO SMOKING -OCCASIONAL ETOH -DENIES DRUG USE PAST SURGICAL HISTORY: -OPEN APPENDECTOMY -OPEN CHOLECYSTECTOMY -COLONOSCOPIES -EGD (JD VELAZCO) Physical Exam Vital Signs Vital Signs - First Documented 08/20/22 02:03 Temp 36.0 Pulse 142 Resp 18 B/P (MAP) 168/108 (128) Pulse Ox 98 O2 Delivery Room Air (DOUGLAS ALTMAN MD) Vital Signs Capillary Refill : Less Than 3 Seconds (JD VELAZCO) Height, Weight, BMI Height: '" Weight: lbs. oz. kg; 28.00 BMI Method: General Appearance: No Apparent Distress, WD/WN, Anxious HEENT: PERRL/EOMI Neck: Normal Inspection, Non Tender, Supple Respiratory: Chest Non Tender, Lungs Clear, Normal Breath Sounds, No Accessory Muscle Use, No Respiratory Distress Cardiovascular: No Edema, No Gallop, No Murmur, Tachycardia (Around 120 at time of exam) Gastrointestinal: Normal Bowel Sounds, Non Tender, Soft Rectal: Deferred Extremity: Normal Capillary Refill, Non Tender, No Pedal Edema Neurologic/Psychiatric: Alert, Oriented x3, Normal Mood/Affect Skin: Normal Color, Warm/Dry (JD VELAZCO) Progress/Results/Core Measures Results/Orders Lab Results Laboratory Tests Test 08/20/22 02:10 Range/Units White Blood Count 6.2 4.3-11.0 10^3/uL Red Blood Count 4.81 3.80-5.11 10^6/uL Hemoglobin 13.7 11.5-16.0 g/dL Hematocrit 43 35-52 % Mean Corpuscular Volume 88 80-99 fL Mean Corpuscular Hemoglobin 29 25-34 pg Mean Corpuscular Hemoglobin Concent 32 32-36 g/dL Red Cell Distribution Width 16.1 H 10.0-14.5 % Platelet Count 270 130-400 10^3/uL Mean Platelet Volume 9.3 9.0-12.2 fL Immature Granulocyte % (Auto) 0 % Neutrophils (%) (Auto) 40 L 42-75 % Lymphocytes (%) (Auto) 48 H 12-44 % Monocytes (%) (Auto) 9 0-12 % Eosinophils (%) (Auto) 2 0-10 % Basophils (%) (Auto) 1 0-10 % Neutrophils # (Auto) 2.5 1.8-7.8 10^3/uL Lymphocytes # (Auto) 3.0 1.0-4.0 10^3/uL Monocytes # (Auto) 0.6 0.0-1.0 10^3/uL Eosinophils # (Auto) 0.1 0.0-0.3 10^3/uL Basophils # (Auto) 0.1 0.0-0.1 10^3/uL Immature Granulocyte # (Auto) 0.0 0.0-0.1 10^3/uL Sodium Level 144 135-145 MMOL/L Potassium Level 3.8 3.6-5.0 MMOL/L Chloride Level 110 H 98-107 MMOL/L Carbon Dioxide Level 22 21-32 MMOL/L Anion Gap 12 5-14 MMOL/L Blood Urea Nitrogen 18 7-18 MG/DL Creatinine 0.86 0.60-1.30 MG/DL Estimat Glomerular Filtration Rate 73 BUN/Creatinine Ratio 21 Glucose Level 150 H 70-105 MG/DL Calcium Level 9.1 8.5-10.1 MG/DL Corrected Calcium 8.9 8.5-10.1 MG/DL Magnesium Level 1.9 1.6-2.4 MG/DL Total Bilirubin 0.3 0.1-1.0 MG/DL Aspartate Amino Transf (AST/SGOT) 22 5-34 U/L Alanine Aminotransferase (ALT/SGPT) 18 0-55 U/L Alkaline Phosphatase 74 40-136 U/L Total Protein 7.3 6.4-8.2 GM/DL Albumin 4.2 3.2-4.5 GM/DL TSH [place] Testing 4.91 0.35-4.94 UIU/ML (DOUGLAS ALTMAN MD) My Orders Orders - DOUGLAS ALTMAN MD Ekg Tracing (08/20/22 02:02) Monitor-Rhythm Ecg Trace Only (08/20/22 02:02) Diltiazem Drip Pre-Mix (Cardizem Drip Pr (08/20/22 02:15) Diltiazem Injection (Cardizem Injection) (08/20/22 02:15) Cbc With Automated Diff (08/20/22 02:11) Comprehensive Metabolic Panel (08/20/22 02:11) Magnesium (08/20/22 02:11) Thyroid Analyzer (08/20/22 02:11) Ed Iv/Invasive Line Start (08/20/22 02:11) Ns Iv 1000 Ml (Sodium Chloride 0.9%) (08/20/22 03:23) Apixaban Tablet (Eliquis Tablet) (08/20/22 04:30) (DOUGLAS ALTMAN MD) Medications Given in ED Current Medications Medications Dose Ordered Sig/Carlo Route Start Time Stop Time Status Last Admin Dose Admin Diltiazem HCl 10 mg ONCE ONCE IVP 08/20/22 02:15 08/20/22 02:16 DC 08/20/22 02:18 10 MG Sodium Chloride 1,000 ml @ ud STK-MED ONCE .ROUTE 08/20/22 03:23 08/20/22 03:26 DC 08/20/22 03:24 999 MLS/HR (DOUGLAS ALTMAN MD) Vital Signs/I&O 08/20/22 08/20/22 08/20/22 02:03 02:17 02:18 Temp 36.0 Pulse 142 142 142 Resp 18 B/P (MAP) 168/108 (128) 168/108 168/108 Pulse Ox 98 O2 Delivery Room Air (DOUGLAS ALTMAN MD) Blood Pressure Mean: 128 Initial ECG Impression Date: Aug 20, 2022 Initial ECG Impression Time: 02:04 Initial ECG Rate: 131 Initial ECG Rhythm: A Fib/Flutter Initial ECG Impression: Atrial Fibrillation w/RVR Comment Atrial fibrillation with RVR. No ST elevation or depression. No abnormal intervals or axis deviation. (DOUGLAS ALTMAN MD) Departure Communication (Admissions) Time/Spoke to Admitting Phy: 04:34 Dr. Christianson Time/Spoke to Consulting Phy: 04:25 Dr. Jenkins (DOUGLAS ALTMAN MD) Impression Primary Impression: Atrial fibrillation with RVR Disposition: ADMITTED INPATIENT Condition: Stable Admissions Decision to Admit Reason: Admit from ER (General) Decision to Admit/Date: Aug 20, 2022 Time/Decision to Admit Time: 04:25 (DOUGLAS ALTMAN MD) Departure-Patient Inst. Referrals: GEE MATA DO (PCP/Family) Primary Care Physician JD VELAZCO Aug 20, 2022 02:37 DOUGLAS ALTMAN MD Aug 20, 2022 04:38
[2022-08-20 02:38] LABS: TOTAL PROTEIN 7.3 GM/DL (6.4-8.2)
[2022-08-20 02:40] LABS: BILIRUBIN,TOTAL 0.3 MG/DL (0.1-1.0)
[2022-08-20 02:41] LABS: CREATININE SERUM 0.86 MG/DL (0.60-1.30)
[2022-08-20 02:44] LABS: MAGNESIUM 1.9 MG/DL (1.6-2.4)
[2022-08-20 03:05] LABS: TSH (THYROID ANALYZER) 4.91 UIU/ML (0.35-4.94)
[2022-08-20] MEDS ORDERED: NS IV 1000 ML 1,000 ML ONE (03:23)
[2022-08-20] MEDS ORDERED: APIXABAN 5 MG (ELIQUIS) TABLET PO ONE (04:30)
[2022-08-20] MEDS ORDERED: CATHETER FLUSH 10 ML SYR IVP PRN (05:15)
[2022-08-20] MEDS: CATHETER FLUSH 10 ML SYR IVP SCH ×3 (06:06→22:00)
--- NOTE | 2022-08-20 11:39 | Consultation-Cardiology ---
HPI-Cardiology Cardiology Consultation: Date of Consultation 08/20/22 Date of Admission Attending Physician Kuldeep Sesay DO Admitting Physician Admitting Physician: Gisselle Christianson MD Attending Physician: Gisselle Christianson MD Consulting Physician Belkys PHILLIPS MD HPI: Time Seen by a Provider: 11:36 Chief Complaint: Palpitations This is a 67-year-old lady who follows with Dr. Dukes as an outpatient. She has history of hypertension. She denies any significant cardiac or other medical history. She started to have palpitations at 1 AM in the morning.She denies any Alcohol use. She denies active smoking. Family history is unremarkable. Review of Systems-Cardiology Review of Systems Constitutional: no symptoms reported Eyes: no symptoms reported Ears/Nose/Throat: no symptoms reported Respiratory: no symptoms reported Cardiovascular: irregular heart rate, palpitations Gastrointestinal: no symptoms reported Genitourinary: no symptoms reported Musculoskeletal: no symptoms reported Skin: no symptoms reported Psychiatric/Neurological: no symptoms reported Hematologic: no symptoms reported All Other Systems Reviewed Negative Unless Noted: Yes IKH-Rvcecj-Nmlxtm Hx Patient Social History Alcohol Use?: Yes Pt feels they are or have been: No Immunizations Up To Date Date of Influenza Vaccine: Dec 27, 2010 Past Medical History PMH As described under Assessment. Allergies and Home Medications Allergies Coded Allergies: No Known Drug Allergies (Unverified , 03/29/11) Patient Home Medication List Home Medication List Reviewed: Yes Atenolol (Tenormin 25 Mg) 25 Mg Tablet, 1 EACH PO DAILY, (Reported) Entered as Reported by: DEEPIKA PIERCE on 03/29/11 1334 Atorvastatin (Lipitor 20MG) 20 Mg Tablet, 1 EACH PO DAILY, (Reported) Entered as Reported by: DEEPIKA PIERCE on 03/29/11 1334 Meloxicam (Meloxicam) 15 Mg Tablet, 1 EACH PO DAILY, (Reported) Entered as Reported by: DEEPIKA PIERCE on 03/29/11 1334 Omeprazole (Omeprazole) 20 Mg Capsule.dr, 1 CAP PO DAILY, (Reported) Entered as Reported by: DEEPIAK PIERCE on 03/29/11 1334 Ondansetron (Ondansetron Odt) 8 Mg Tab.rapdis, 8 MG PO Q4H PRN for NAUSEA/VOMITING Prescribed by: LUISA ARANGO on 03/10/22 0407 Oxycodone HCl/Acetaminophen (Oxycodone-Acetaminophen 5-325) 5 Mg-325 Mg Tablet, 1 EACH PO Q4H PRN for PAIN-MODERATE Prescribed by: LUISA ARANGO on 03/10/22 0408 Exam Vital Signs Vital Signs Date Time Temp Pulse Resp B/P (MAP) Pulse Ox O2 Delivery O2 Flow Rate FiO2 08/20/22 07:24 36.6 110 12 130/88 (102) 98 Room Air Physical Exam Constitutional: No respiratory distress. CVS: Irregular heart rhythm, tachycardia. Chest examination: Bilateral breath sounds. Labs Laboratory Tests Test 08/20/22 02:10 Range/Units White Blood Count 6.2 4.3-11.0 10^3/uL Red Blood Count 4.81 3.80-5.11 10^6/uL Hemoglobin 13.7 11.5-16.0 g/dL Hematocrit 43 35-52 % Mean Corpuscular Volume 88 80-99 fL Mean Corpuscular Hemoglobin 29 25-34 pg Mean Corpuscular Hemoglobin Concent 32 32-36 g/dL Red Cell Distribution Width 16.1 H 10.0-14.5 % Platelet Count 270 130-400 10^3/uL Mean Platelet Volume 9.3 9.0-12.2 fL Immature Granulocyte % (Auto) 0 % Neutrophils (%) (Auto) 40 L 42-75 % Lymphocytes (%) (Auto) 48 H 12-44 % Monocytes (%) (Auto) 9 0-12 % Eosinophils (%) (Auto) 2 0-10 % Basophils (%) (Auto) 1 0-10 % Neutrophils # (Auto) 2.5 1.8-7.8 10^3/uL Lymphocytes # (Auto) 3.0 1.0-4.0 10^3/uL Monocytes # (Auto) 0.6 0.0-1.0 10^3/uL Eosinophils # (Auto) 0.1 0.0-0.3 10^3/uL Basophils # (Auto) 0.1 0.0-0.1 10^3/uL Immature Granulocyte # (Auto) 0.0 0.0-0.1 10^3/uL Sodium Level 144 135-145 MMOL/L Potassium Level 3.8 3.6-5.0 MMOL/L Chloride Level 110 H 98-107 MMOL/L Carbon Dioxide Level 22 21-32 MMOL/L Anion Gap 12 5-14 MMOL/L Blood Urea Nitrogen 18 7-18 MG/DL Creatinine 0.86 0.60-1.30 MG/DL Estimat Glomerular Filtration Rate 73 BUN/Creatinine Ratio 21 Glucose Level 150 H 70-105 MG/DL Calcium Level 9.1 8.5-10.1 MG/DL Corrected Calcium 8.9 8.5-10.1 MG/DL Magnesium Level 1.9 1.6-2.4 MG/DL Total Bilirubin 0.3 0.1-1.0 MG/DL Aspartate Amino Transf (AST/SGOT) 22 5-34 U/L Alanine Aminotransferase (ALT/SGPT) 18 0-55 U/L Alkaline Phosphatase 74 40-136 U/L Total Protein 7.3 6.4-8.2 GM/DL Albumin 4.2 3.2-4.5 GM/DL TSH [place] Testing 4.91 0.35-4.94 UIU/ML ECG Impression ECG Initial ECG Rhythm: A Fib/Flutter Initial ECG Impression: Atrial Fibrillation w/RVR A/P-Cardiology Assessment/Admission Diagnosis Atrial fibrillation with RVR, Hypertension, Hyperlipidemia Plan New onset atrial fibrillation with RVR. With 20 mg of Cardizem in the ER patient very briefly had bradycardia. Started on oral anticoagulation. We will start IV amiodarone. Echocardiogram. Belkys PHILLIPS MD Aug 20, 2022 11:39
[2022-08-20] MEDS: AMIODARONE INJECTION 450 MG in NORMAL SALINE 250 ML IV SCH ×2 (12:45→19:33)
[2022-08-20] MEDS ORDERED: ASPI-999 PO (13:52)
--- NOTE | 2022-08-20 15:06 | History & Physical-Hospitalist ---
History of Present Illness HPI/Chief Complaint Ruel Anderson is a 67 year old female with PMH HTN, HLD, GERD, osteoporosis, obesity, who presented with palpitations. She denies chest pain. She denies shortness of breath. She denies abdominal pain. She denies nausea and vomiting. She denies fevers. She follows with Dr. Dukes due to family history of CAD, but she has no personal history of heart disease. She reports no history of arrhythmia. She thinks it may be due to an infusion she received yesterday for osteoporosis. Source: patient Exam Limitations: no limitations Date Seen 08/20/22 Time Seen by a Provider: 11:15 Attending Physician Kuldeep Sesay DO PCP Admitting Physician: Ira Christianson MD Attending Physician: Ira Christianson MD Referring Physician Date of Admission Aug 20, 2022 at 04:47 Home Medications & Allergies Home Medications Reviewed patient Home Medication Reconciliation performed by pharmacy medication reconciliations fire control technician b and/or nursing. Patients Allergies have been reviewed. Allergies Allergies Coded Allergies No Known Drug Allergies (Unverified03/29/11) Past Tgsrkvd-Cscnnv-Wlbcue Hx Patient Social History Tobacco Use?: No Substance use?: No Alcohol Use?: Yes Alcohol type: Beer Alcohol Frequency: Once in a while Pt feels they are or have been: No Immunizations Up To Date Date of Influenza Vaccine: Dec 27, 2010 Tetanus Booster (TDap): Unknown Current Status status: No Advance Directives: No Communicates: Verbally Primary Language: Lithuanian Preferred Spoken Language: Lithuanian Is interpretation needed?: No Implanted or Applied Medical D: None Past Medical History Surgeries: Abdominal, Appendectomy, Gallbladder 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, 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 Gastroesophageal Reflux, Crohns Disease Arthritis Blood Disorders: No Family Medical History Heart Disease (Father of [place] at age 57) SOCIAL HISTORY: -NO SMOKING -OCCASIONAL ETOH -DENIES DRUG USE PAST SURGICAL HISTORY: -OPEN APPENDECTOMY -OPEN CHOLECYSTECTOMY -COLONOSCOPIES -EGD Review of Systems Constitutional: no symptoms reported Respiratory: no symptoms reported Cardiovascular: palpitations Gastrointestinal: no symptoms reported Physical Exam Physical Exam Vital Signs Vital Signs - First Documented 08/20/22 02:03 Temp 36.0 Pulse 142 Resp 18 B/P (MAP) 168/108 (128) Pulse Ox 98 O2 Delivery Room Air Capillary Refill : Less Than 3 Seconds Height, Weight, BMI Height: '" Weight: lbs. oz. kg; 36.12 BMI Method: General Appearance: No Apparent Distress, Obese HEENT: PERRL/EOMI, Pharynx Normal Neck: Normal Inspection, Supple Respiratory: Lungs Clear, Normal Breath Sounds, No Respiratory Distress Cardiovascular: No Murmur, Irregularly Irregular, Tachycardia Gastrointestinal: Normal Bowel Sounds, Non Tender, Soft Extremity: Normal Inspection, No Pedal Edema Neurologic/Psychiatric: Alert, Normal Mood/Affect Skin: Normal Color, Warm/Dry Results Results/Procedures Labs Laboratory Tests 08/20/22 02:10 Patient resulted labs reviewed. Imaging: Reviewed Imaging Report Assessment/Plan Admission Diagnosis AFib with RVR Admission Status: Inpatient Order (span 2 midnights) Reason for Inpatient Admission: IV antiarrhythmics Assessment and Plan AFib with RVR Cardiology consulting Received loading dose of Cardizem in ER with subsequent bradycardia Starting Amiodarone Eliquis for stroke prophylaxis Echo ordered HTN HLD GERD Osteoporosis Obesity Continue home meds as able Diagnosis/Problems Diagnosis/Problems (1) Atrial fibrillation with RVR Status: Acute Clinical Quality Measures AMI/AHF: ASA po Prior to arrival: IRA North MD Aug 20, 2022 15:06
[2022-08-20] MEDS: APIXABAN 5 MG (ELIQUIS) TABLET PO SCH (20:39)
[2022-08-21] VITALS (12 sets, daily range): BP systolic 97–160; BP diastolic 71–100
[2022-08-21] MEDS: dilTIAZem DRIP PRE-MIX 125 ML IV SCH (04:25)
[2022-08-21] MEDS: CATHETER FLUSH 10 ML SYR IVP SCH ×2 (05:58→09:54)
[2022-08-21] MEDS ORDERED: LIDOCAINE 2% VISCOUS 15 ML UDC PO ONE (08:00)
[2022-08-21] MEDS ORDERED: NS IV 500 ML 500 ML ONE (08:09)
[2022-08-21] MEDS: APIXABAN 5 MG (ELIQUIS) TABLET PO SCH (08:10)
[2022-08-21] MEDS ORDERED: NS 100 ML (IVPB) BAG IV ONE (08:45)
[2022-08-21] MEDS ORDERED: NS IV 500 ML 500 ML IV SCH (09:00)
--- NOTE | 2022-08-21 09:05 | Tele-ICU Progress Note ---
Progress Note video rounds completed 67 y/o female admitted with AF/RVR Cardiology consulted Anticoagulation and amiodarone started IMP: a fib/RVR PLAN: as per cardiology Focused Exam Height, Weight, BMI Height: '" Weight: lbs. oz. kg; 36.12 BMI Method: Results Results/Procedures Labs Laboratory Tests 08/20/22 02:10 Patient resulted labs reviewed. Imaging: Reviewed Imaging Report JD ANTONIO MD Aug 21, 2022 09:05
[2022-08-21] MEDS ORDERED: MIDAZOLAM 2 MG/2 ML (VERSED) VIAL ONE (09:34)
[2022-08-21] MEDS ORDERED: proPOfol 200 MG/20 ML (DIPRIVAN) VIAL IV ONE (09:34)
[2022-08-21 10:12] LABS: POTASSIUM 3.7 MMOL/L (3.6-5.0)
[2022-08-21 10:14] LABS: CALCIUM 8.4 MG/DL (8.5-10.1)
[2022-08-21 10:18] LABS: CREATININE SERUM 0.76 MG/DL (0.60-1.30)
[2022-08-21 10:20] LABS: MAGNESIUM 1.8 MG/DL (1.6-2.4)
[2022-08-21] MEDS ORDERED: AMIODARONE 200 MG (CORDARONE) TAB PO SCH (11:00)
[2022-08-21] MEDS ORDERED: APIX5TAB PO (11:04)
[2022-08-21] MEDS ORDERED: AMIO200T65 PO (11:04)
--- NOTE | 2022-08-21 11:38 | Cardiology Progress Note ---
Cardiology SOAP Progress Note Subjective: No cardiac complaints Objective: I&O/Vital Signs 08/20/22 08/21/22 08/21/22 08/21/22 23:46 00:00 01:00 01:00 Temp 36.2 Pulse 93 117 100 B/P (MAP) 118/79 (92) 125/90 (102) Pulse Ox 94 93 O2 Delivery Room Air Room Air 08/21/22 08/21/22 08/21/22 08/21/22 02:00 03:00 04:00 05:00 Pulse 105 113 90 124 Resp 16 B/P (MAP) 126/98 (107) 97/74 (82) 145/95 (112) 124/87 (99) Pulse Ox 93 94 95 95 O2 Delivery Room Air Room Air Room Air Room Air 08/21/22 08/21/22 08/21/22 08/21/22 06:00 07:00 07:52 08:59 Temp 36.4 Pulse 106 116 116 Resp 18 15 B/P (MAP) 116/84 (95) 106/77 (87) Pulse Ox 93 96 95 O2 Delivery Room Air Room Air Room Air 08/21/22 08/21/22 08/21/22 09:00 10:00 11:00 Pulse 130 92 73 Resp 22 17 17 B/P (MAP) 106/84 (95) 160/100 (122) 134/73 (101) Pulse Ox 95 96 95 O2 Delivery Room Air Room Air Room Air 08/21/22 00:00 Intake Total 1459 ml Output Total 400 ml Balance 1059 ml Constitutional: AAO x 3 Respiratory: chest is bilaterally symmetric, lungs clear to auscultation Cardiovascular: regular rate-rhythm, S1 and S2 Gastrointestional: soft Extremities: No pedal edema Neurologic/Psychiatric: alert, normal mood/affect, oriented x 3 Skin: normal color Results/Procedures: Labs Laboratory Tests 08/21/22 09:55: Sodium Level 143, Potassium Level 3.7, Chloride Level 112H, Carbon Dioxide Level 21, Anion Gap 10, Blood Urea Nitrogen 11, Creatinine 0.76, Estimat Glomerular F iltration Rate 85, BUN/Creatinine Ratio 14, Glucose Level 105, Calcium Level 8.4L, Magnesium Level 1.8 A/P: Assessment/Dx: Atrial fibrillation with RVR, Hypertension, Hyperlipidemia Plan: New onset atrial fibrillation with RVR. IV amiodarone started overnight. Patient converted to sinus rhythm this morning. Echocardiogram shows normal LV function with no significant valvular heart disease. Convert amiodarone to p.o. 200 mg twice daily. Continue oral anticoagulation. Patient can be discharged once amiodarone infusion is over. Follow-up with Dr. Dukes as an outpatient. Clinical Quality Measures AMI/AHF: ASA po Prior to arrival: Belkys Leyva MD Aug 21, 2022 11:38
--- NOTE | 2022-08-21 18:22 | Discharge Summary ---
Discharge Summary Hospital Course Problems/Dx: (1) Atrial fibrillation with RVR Status: Acute Hospital Course Date of Admission: Aug 20, 2022 at 04:47 Admission Diagnosis : AFib with RVR Family Physician/Provider: Gee Sesay DO Date of Discharge: 08/21/22 Discharge Diagnosis: AFib with RVR Hospital Course: Giselle Anderson is a 67 year old female who was admitted with new onset AFib with RVR. Cardiology was consulted and assisted with her care. She was started on Eliquis for stroke prophylaxis. She was given IV Cardizem and she became bradycardic. She was started on IV Amiodarone. She subsequently converted to normal sinus rhythm. She was switched to oral Amiodarone. She should follow up with Dr. Dukes in 2-3 weeks. She was discharged home in stable condition. Labs and Pending Lab Test: Laboratory Tests 08/21/22 09:55: Sodium Level 143, Potassium Level 3.7, Chloride Level 112H, Carbon Dioxide Level 21, Anion Gap 10, Blood Urea Nitrogen 11, Creatinine 0.76, Estimat Glomerular Filtration Rate 85, BUN/Creatinine Ratio 14, Glucose Level 105, Calcium Level 8.4L, Magnesium Level 1.8 Home Meds Active Amiodarone HCl 200 Mg Tablet 200 Mg PO BID 30 Days Eliquis (Apixaban) 5 Mg Tablet 5 Mg PO BID 30 Days Reported Aspirin 81 Mg Tab.chew 81 Mg PO DAILY Omeprazole 20 Mg Capsule. 1 Cap PO DAILY Lipitor 20MG (Atorvastatin Calcium) 20 Mg Tablet 1 Each PO DAILY Assessment/Pt Instructions See instructions Discharge Planning: <30 minutes discharge planning Discharge Instructions Discharge Diet: Low Sodium Diet Activity as Tolerated: Yes Consultations Cardiology Discharge Physical Examination Vital Signs Vital Signs Date Time Temp Pulse Resp B/P (MAP) Pulse Ox O2 Delivery O2 Flow Rate FiO2 08/21/22 12:50 08/21/22 12:27 92 08/21/22 12:00 Room Air 08/21/22 11:54 36.9 08/21/22 11:00 17 95 General Appearance: No Apparent Distress, Obese Respiratory: Lungs Clear, No Respiratory Distress Cardiovascular: Regular Rate, Rhythm, No Murmur Gastrointestinal: Normal Bowel Sounds, Soft Extremity: Normal Inspection, No Pedal Edema Skin: Normal Color, Warm/Dry Neurologic/Psychiatric: Alert, Normal Mood/Affect Allergies: Coded Allergies: No Known Drug Allergies (Unverified , 03/29/11) Copy Copies To 1: GEE SESAY DO Discharge Summary Date of Admission Aug 20, 2022 at 04:47 Date of Discharge Aug 21, 2022 at 12:50 Discharge Date: Aug 21, 2022 Discharge Time: 12:50 Admission Diagnosis AFib with RVR Consults/Procedures Consulations Cardiology Discharge Diagnosis AFib with RVR HTN HLD GERD Osteoporosis Obesity (1) Atrial fibrillation with RVR Status: Acute Clinical Quality Measures AMI/AHF: ASA po Prior to arrival: IRA North MD Aug 21, 2022 18:22
== END 2022-08-21 11:04 | disposition home or self-care (01) ==
LOC: EDUNIT# 01:56 → ER 01:59 → UNDOADMOB 04:47 → ICU 04:47 → UNDODISOB 08-21 11:04
PROVIDERS: ADMIT Internal Medicine; ATTEND Internal Medicine
DX: I48.91 Unspecified atrial fibrillation (principal); I10 Essential (primary) hypertension; E78.5 Hyperlipidemia, unspecified; K21.9 Gastro-esophageal reflux disease without esophagitis; M81.0 Age-related osteoporosis without current pathological fracture; E66.9 Obesity, unspecified; Z79.01 Long term (current) use of anticoagulants; Z68.35 Body mass index [BMI] 35.0-35.9, adult
CPT/HCPCS: 80048; 80053; 83735 ×2; 84443; 85025; 93005 ×2; 93041; 96366; 96376; 99284; C8929; G0378 ×2; 36415; 93306